=== PATIENT | female | born 1935 | race Caucasian/White ===

== ENCOUNTER 2017-07-11 13:34 | Observation (INO) | payer OTHER, BC ==
[~2017-07-11] VITALS: Ht 154.9 cm; Wt 65.8 kg
[~2017-07-11 13:34] MED LIST: ADULT LOW DOSE81 M1 PO; APRESOLINE25 MG PO; AVANDIA4 MG PO; CADUET 10/801 TABLET PO; CARDIZEM CD360 MG PO; CRESTOR20 MG PO; DETROL LA2 MG PO; HYDRALAZINE HCL50 MG PO; HYZAAR 100-21 TABLET PO; LIPITOR40 MG PO; LOPRESSOR50 MG PO; NORVASC10 MG PO; STOOL SOFTENER50 MG PO; TYLENOL PM EX-1 EACH PO; VALIUM5 MG PO; VITAMIN E100 UNIT PO; ZETIA10 MG PO
[2017-07-11 14:03] LABS: BASOPHIL (%) 0.4 % (0-1); EOSINOPHIL (%) 2.4 % (0-5); EOSINOPHIL COUNT 0.2 K/uL (0-0.3); HEMATOCRIT 32.2 % (36.0-46.0); HEMOGLOBIN 10.2 G/DL (11.9-15.5); IMMATURE GRANULOCYTE (%) 0.6 % (0.0-0.7); LYMPHOCYTE (%) 16.3 % (15-42); LYMPHOCYTE COUNT 1.1 K/uL (1.0-2.8); MCH 30.4 PG (29.0-34.0); MCHC 31.7 G/DL (30.0-36.0); MCV 95.8 FL (83-99); MONOCYTE (%) 7.3 % (3-12); MONOCYTE COUNT 0.5 K/uL (0-0.8); NEUTROPHIL COUNT 4.9 K/uL (1.8-6.4); PLATELET COUNT 217 K/uL (156-360); RBC DIS.WIDTH-CV 15.5 % (11.8-14.6); RBC DIS.WIDTH-SD 55.3 % (39-53); RED BLOOD COUNT 3.36 M/uL (3.80-5.20); WHITE BLOOD COUNT 6.7 K/uL (4.1-10.2)
[2017-07-11 14:11] LABS: ALBUMIN 3.8 g/dL (3.2-4.8); CHLORIDE 104 mEq/L (99-109); POTASSIUM 3.8 mEq/L (3.7-5.4); SODIUM 140 mEq/L (136-147)
[2017-07-11 14:14] LABS: GLUCOSE 158 mg/dL (70-99); TOTAL PROTEIN 6.9 g/dL (6.4-8.3)
[2017-07-11 14:16] LABS: TOTAL BILIRUBIN 0.6 mg/dL (0.0-1.0)
[2017-07-11 14:17] LABS: ALKALINE PHOSPHATASE 83 IU/L (3-129); CREATININE 1.4 mg/dL (0.6-1.3); GFR ESTIMATE (CALCULATED) 38 mL/min/
[2017-07-11 14:18] LABS: UREA NITROGEN (BUN) 30 mg/dL (9-23)
[2017-07-11 14:19] LABS: AST (GOT) 22 IU/L (2-34)
[2017-07-11 14:20] LABS: ALT (GPT) 12 IU/L (3-49)
[2017-07-11 14:24] LABS: TROP-I INTERPRETATION NEGATIVE; TROPONIN-I < 0.01 ng/mL (0.0-0.30)
[2017-07-11 15:01] LABS: APPEARANCE CLEAR ((CLEAR)); BILIRUBIN NEGATIVE; BLOOD NEGATIVE; COLOR YELLOW ((YELLOW)); GLUCOSE (STRIP) >=500; KETONES NEGATIVE; LEUKOCYTES SMALL; NITRITE NEGATIVE; PROTEIN (STRIP) NEGATIVE; SPECIFIC GRAVITY 1.015 (1.000-1.030); UROBILINOGEN 0.2 MG/DL (0.2-1.0)
[2017-07-11 15:20] LABS: BACTERIA NONE SEEN /HPF; EPITHELIAL CELLS RARE /HPF; HYALINE CASTS 0-5 /LPF; MUCUS NONE SEEN /LPF; RED BLOOD CELLS 0-5 /HPF (0-5); UCUL ADDED? YES; WHITE BLOOD CELLS 20-30 /HPF (0-5)
[2017-07-11] MEDS ORDERED: FARXIGA5 MG PO (15:29)
[2017-07-11 18:24] VITALS: BP 177/76
[2017-07-11 19:20] VITALS: BP 173/74
[2017-07-11 20:04] LABS: TROP-I INTERPRETATION NEGATIVE; TROPONIN-I < 0.01 ng/mL (0.0-0.30)
[2017-07-12 00:17] VITALS: BP 145/63
[2017-07-12 01:45] LABS: BASOPHIL (%) 0.3 % (0-1); EOSINOPHIL (%) 1.4 % (0-5); EOSINOPHIL COUNT 0.1 K/uL (0-0.3); HEMATOCRIT 28.1 % (36.0-46.0); HEMOGLOBIN 8.9 G/DL (11.9-15.5); IMMATURE GRANULOCYTE (%) 0.5 % (0.0-0.7); LYMPHOCYTE (%) 16.4 % (15-42); LYMPHOCYTE COUNT 1.1 K/uL (1.0-2.8); MCH 30.2 PG (29.0-34.0); MCHC 31.7 G/DL (30.0-36.0); MCV 95.3 FL (83-99); MONOCYTE (%) 9.5 % (3-12); MONOCYTE COUNT 0.6 K/uL (0-0.8); NEUTROPHIL (%) 71.9 % (45-76); NEUTROPHIL COUNT 4.7 K/uL (1.8-6.4); PLATELET COUNT 201 K/uL (156-360); RBC DIS.WIDTH-CV 15.5 % (11.8-14.6); RBC DIS.WIDTH-SD 54.3 % (39-53); RED BLOOD COUNT 2.95 M/uL (3.80-5.20); WHITE BLOOD COUNT 6.5 K/uL (4.1-10.2)
[2017-07-12 01:59] LABS: ALBUMIN 3.2 g/dL (3.2-4.8); CHLORIDE 109 mEq/L (99-109); POTASSIUM 3.7 mEq/L (3.7-5.4); SODIUM 142 mEq/L (136-147)
[2017-07-12 02:05] LABS: ALKALINE PHOSPHATASE 68 IU/L (3-129); CREATININE 1.2 mg/dL (0.6-1.3); GFR ESTIMATE (CALCULATED) 46 mL/min/
[2017-07-12 02:06] LABS: UREA NITROGEN (BUN) 25 mg/dL (9-23)
[2017-07-12 02:07] LABS: AST (GOT) 17 IU/L (2-34); DIRECT BILIRUBIN 0.2 mg/dL (0.0-0.3)
[2017-07-12 02:08] LABS: ALT (GPT) 10 IU/L (3-49); GLUCOSE 97 mg/dL (70-99); TOTAL BILIRUBIN 0.3 mg/dL (0.0-1.0); TOTAL PROTEIN 5.2 g/dL (6.4-8.3)
[2017-07-12 02:10] LABS: TROP-I INTERPRETATION NEGATIVE; TROPONIN-I 0.02 ng/mL (0.0-0.30)
[2017-07-12 05:08] VITALS: BP 141/63
[2017-07-12 07:44] VITALS: BP 149/65
[2017-07-12 11:37] VITALS: BP 124/60
== END 2017-07-12 16:11 | disposition home or self-care (01) ==
LOC: EME 13:34 → EDOF 15:38 → 5WEST 15:38 → ENRESERV 15:39 → 5WEST 17:55
PROVIDERS: Emergency Medicine; Hospitalist; Physician Assistant
DX: R55 Syncope and collapse (principal); N39.0 Urinary tract infection, site not specified; E86.0 Dehydration; E11.9 Type 2 diabetes mellitus without complications; I10 Essential (primary) hypertension; I67.89 Other cerebrovascular disease; Z98.890 Other specified postprocedural states; I25.10 Atherosclerotic heart disease of native coronary artery without angina pectoris; Z95.1 Presence of aortocoronary bypass graft; E78.5 Hyperlipidemia, unspecified; E78.00 Pure hypercholesterolemia, unspecified; I27.20 Pulmonary hypertension, unspecified; M47.812 Spondylosis without myelopathy or radiculopathy, cervical region; Z82.49 Family history of ischemic heart disease and other diseases of the circulatory system; Z80.42 Family history of malignant neoplasm of prostate; Z79.82 Long term (current) use of aspirin; Z79.84 Long term (current) use of oral hypoglycemic drugs; Z88.5 Allergy status to narcotic agent
CPT/HCPCS: 71046; 80048; 80053; 80076; 81003; 82948; 84484; 85025; 85379; 87086; 93005; 93306; 93880; 99281; 99285; G0378; J0696; J1644; J7030